=== PATIENT | male | born 1995 | race Caucasian/White ===

== ENCOUNTER → 2021-07-09 15:50 | Outpatient (BNVA) | payer OTHER, SELFPAY | PROVIDERS: Visit Provider Nurse Practitioner Family | DX: Z20.822 Contact with and (suspected) exposure to COVID-19 (principal) | CPT/HCPCS: 87635 ==

== ENCOUNTER 2023-08-18 16:30 | Outpatient (CLI) | payer OTHER, SELFPAY | END 2023-08-18 16:31 | disposition home or self-care (01) | LOC: SLEEP 08-19 08:52 | PROVIDERS: Visit Provider Family Medicine | DX: G47.30 Sleep apnea, unspecified (principal) | CPT/HCPCS: G0399 ==